=== PATIENT | male | born 2000 | race Caucasian/White ===

== ENCOUNTER 2023-11-18 09:44 | Emergency (ER) | payer OTHER, SELFPAY ==
[2023-11-18 10:02] VITALS: BP 118/52; PULSE 128; RESP 18; TEMP 36.7; O2SAT 98
--- NOTE | 2023-11-18 10:21 | ED.ALLEREA ---
HPI - Allergic Reaction General Chief complaint: Upper Respiratory Infection Stated complaint: shortness of breath,itchy throat,cough Time Seen by Provider: 11/18/23 10:08 Source: patient and RN notes reviewed Mode of arrival: ambulatory Limitations: no limitations History of Present Illness HPI narrative: Patient presents today complaining of cough, shortness of breath, scratchy throat since yesterday. Patient got a new cat the night before onset of symptoms. He has never had a cat before, but cat allergies run in his family. When he is not within his home, around the cat, he has no symptoms. He is currently symptom free. As soon as he enters his home, his symptoms return. He has some allergy medicine at home, but has not yet tried it. Related Data Home Medications Medication Instructions Recorded Confirmed No Home Medications 11/18/23 11/18/23 Allergies Allergy/AdvReac Type Severity Reaction Status Date / Time No Known Allergies Allergy Verified 11/18/23 10:01 Review of Systems Review of Systems: CONSTITUTIONAL: Denies body aches, fever, chills, or sweats. EYES: Denies visual changes, redness, or discharge. ENT: Denies rhinorrhea, congestion, sore throat, or otalgia.+ scratchy throat-none currently CARDIOVASCULAR: Denies chest pain, palpitations, or edema. RESPIRATORY: + cough, shortness of breath-none currently GASTROINTESTINAL: Denies abdominal pain, nausea, vomiting, or diarrhea. GENITOURINARY: Denies dysuria or hematuria. SKIN: Denies rash, itching, or wounds. MUSCULOSKELETAL: Denies back pain, joint pain, or myalgia. NEUROLOGIC: Denies headache, numbness, tingling, or weakness. PSYCH: Denies depression or anxiety. PMFSH Comments At time of signature, I have reviewed and agree with nursing past medical, surgical, social and family history unless otherwise noted. Please see nursing chart for further information. There is no relevant family history pertinent to the presenting complaint Exam Narrative: GENERAL: Well-appearing, well-nourished, and in no acute distress. HEAD: Normocephalic, atraumatic. EYES: EOMI. No redness or drainage. Conjunctivae normal. ENT: Mucous membranes pink and moist. Nares clear. No rhinorrhea. TMs normal bilaterally. Throat normal. Uvula midline. NECK: Normal AROM. Supple. No lymphadenopathy. CHEST: No respiratory distress. Clear to auscultation. HEART: Regular rate and rhythm. No murmur appreciated. EXTREMITIES: Normal range of motion. No edema. SKIN: Warm, dry, no rash. Capillary refill normal. Normal skin turgor. NEURO: No focal deficits. Alert and oriented x3. Gait steady. PSYCH: Normal affect. No signs of depression or anxiety. Course Course Level of Care: Express Care Visit Vital Signs Vital signs: Vital Signs Temperature 98.1 F 11/18/23 10:02 Pulse Rate 128 H 11/18/23 10:02 Respiratory Rate 18 11/18/23 10:02 Blood Pressure 118/52 L 11/18/23 10:02 Pulse Oximetry 98 11/18/23 10:02 Oxygen Delivery Room Air 11/18/23 10:02 Temperature 98.1 F 11/18/23 10:02 Pulse Rate 128 H 11/18/23 10:02 Respiratory Rate 18 11/18/23 10:02 Blood Pressure 118/52 L 11/18/23 10:02 Pulse Oximetry 98 11/18/23 10:02 Oxygen Delivery Room Air 11/18/23 10:02 Reviewed MDM - Allergic Reaction MDM Narrative Medical decision making narrative: Patient's symptoms are likely due to cat allergy. Discussed that he could try taking an antihistamine to see if this helps with his symptoms, but ultimately he would likely need to get rid of the cat. Patient agrees with plan. Anticipatory guidance given. Differential Diagnosis Differential diagnosis: Likely allergic reaction, contact dermatitis and other (Upper respiratory infection, rhinitis) Critical Care Time Critical Care Time Critical Care Time: No Discharge Plan Discharge Clinical Impression: Allergic reaction to animal Patient Disposition: Home, Self-Care Conditio
== END 2023-11-18 10:21 | disposition home or self-care (01) ==
PROVIDERS: Emergency Provider Nurse Practitioner
DX: J30.81 Allergic rhinitis due to animal (cat) (dog) hair and dander (principal)
CPT/HCPCS: 99202; G0463